=== PATIENT | female | born 1985 | race African-American/Black ===

== ENCOUNTER 2017-04-15 17:49 | Emergency (ER) | payer OTHER, MEDICAID ==
[~2017-04-15] VITALS: Ht 167.6 cm; Wt 99.8 kg
[~2017-04-15 17:49] MED LIST: AUGMENTIN 500-1 EACH PO; AZITHROMYCIN 2250 MG PO; BACTRIM DS TAB1 EACH PO; CLARITIN10 MG; CLEOCIN HCL300 MG PO; DICLEGIS DR 101 EACH PO; DOXYCYCLINE 10100 MG PO; FLAGYL500 MG PO; FLEXERIL PO; HTN MED; HYDROCODON-ACE1 EAC7 PO; HYDROCODONE-AP1 EAC6 PO; IBUPROFEN 600600 M1 PO; IBUPROFEN 800800 M1 PO; IRON325 PO; MACROBID 100 M100 M2 PO; MEDROLDOSEPACK PO; MUSCLE RELAXANT; NORCO 5-325 TA1 EACH; NORCO 5-325 TA1 EACH PO; ONDANSETRON HCL4 M2 PO; PERCOCET 5-3251 EACH PO; PERCOCET 7.5-31 EACH PO; PRENATAL ONE T1 EACH PO; PRENATAL PO; PROAIR HFA8.5 GM INH; PROVENTIL HFA6.7 G1 INH; ROBAXIN 750 MG750 M1 PO; TRAMADOL 50 MG50 MG PO; TRINATE TABLET1 TAB PO; ULTRAM 50MG TAB50 MG PO; ZOFRAN ODT4 MG PO; ZOFRAN4 MG PO; ZPAK PO
[2017-04-15 17:54] VITALS: BP 183/110
[2017-04-15] MEDS ORDERED: AMLODIPINE BESY10 MG PO (18:02)
[2017-04-15] MEDS ORDERED: CORICIDIN COLD1 EACH PO (18:12)
[2017-04-15] MEDS ORDERED: OSELB75 PO (18:12)
[2017-04-15] MEDS ORDERED: TESSALON PERLE100 MG PO (18:12)
[2017-04-15] MEDS ORDERED: IBUPROFEN 800800 M1 PO (18:13)
== END 2017-04-15 18:20 | disposition home or self-care (01) ==
LOC: M.ERS 17:49
DX: J11.1 Influenza due to unidentified influenza virus with other respiratory manifestations (principal); I10 Essential (primary) hypertension; Z88.5 Allergy status to narcotic agent

== ENCOUNTER 2017-07-31 21:38 | Emergency (ER) | payer OTHER, MEDICAID ==
[~2017-07-31] VITALS: Ht 167.6 cm; Wt 106.6 kg
[~2017-07-31 21:38] MED LIST changes: +AMLODIPINE BESY10 MG PO; +CORICIDIN COLD1 EACH PO; +OSELB75 PO; +TESSALON PERLE100 MG PO
[2017-07-31 21:42] VITALS: BP 150/83
[2017-07-31] MEDS ORDERED: TRAZODONE HCL50 MG PO (21:49)
[2017-07-31] MEDS ORDERED: HYDROXYZINE PAM50 MG PO (21:49)
[2017-07-31] MEDS ORDERED: FLEXERIL PO (22:01)
[2017-07-31] MEDS ORDERED: IBUPROFEN 800800 MG PO (22:01)
[2017-07-31] MEDS ORDERED: LIORESAL 10 MG10 MG PO (22:01)
--- NOTE | 2017-08-02 15:49 | EKG ---
[place] [address] ELECTROCARDIOGRAM REPORT Name: SHAMA HILLS [facility] [id number] Admission: 07/31/17 Attend Phys: Discharge: 07/31/17 Date of : 87 Report #: [id number] THIS REPORT FOR: //name// [facility] ED Test Date: 2017-07-31 Test Time: 21:43:35 Pat Name: SHAMA HILLS Department: Room: Gender: F [employer]: ELSIE : 1985 Requested By: Krystal Davila Order Number: [id number] Reading MD: Brice Mendoza Measurements Intervals [place] Rate: 83 P: 39 UT: 164 QRS: 7 QRSD: 107 T: 27 QT: 371 QTc: 436 Interpretive Statements Sinus rhythm Compared to ECG 01/30/2016 20:56:04 No significant changes Electronically Signed On 08-02-2017 15:49:46 CDT by Brice Mendoza [email or web address] <ELECTRONICALLY SIGNED> By: Brice Mendoza MD, [facility] 08/02/17 [id number] [id number] Brice Mendoza MD, FACC /EPI
== END 2017-07-31 22:13 | disposition home or self-care (01) ==
LOC: M.ERS 21:38
DX: M43.6 Torticollis (principal); I10 Essential (primary) hypertension; F41.9 Anxiety disorder, unspecified; F32.9 Major depressive disorder, single episode, unspecified; Z88.5 Allergy status to narcotic agent

== ENCOUNTER 2017-12-29 22:50 | Emergency (ER) | payer MEDICAID ==
[~2017-12-29] VITALS: Ht 167.6 cm; Wt 104.3 kg
[~2017-12-29 22:50] MED LIST changes: +HYDROXYZINE PAM50 MG PO; +IBUPROFEN 800800 MG PO; +LIORESAL 10 MG10 MG PO; +TRAZODONE HCL50 MG PO
[2017-12-29 23:05] VITALS: BP 149/74
[2017-12-29] MEDS ORDERED: SSD CREAM 1% 5050 GM TOP (23:32)
== END 2017-12-29 23:52 | disposition home or self-care (01) ==
LOC: M.ERS 22:50
DX: T24.112A Burn of first degree of left thigh, initial encounter (principal); T31.0 Burns involving less than 10% of body surface; I10 Essential (primary) hypertension; F32.9 Major depressive disorder, single episode, unspecified; F41.9 Anxiety disorder, unspecified; Z88.5 Allergy status to narcotic agent; X08.8XXA Exposure to other specified smoke, fire and flames, initial encounter; Y93.89 Activity, other specified; Y92.89 Other specified places as the place of occurrence of the external cause; Y99.8 Other external cause status

== ENCOUNTER 2018-02-22 12:48 | Emergency (ER) | payer MEDICAID ==
[~2018-02-22] VITALS: Ht 167.6 cm; Wt 99.8 kg
[~2018-02-22 12:48] MED LIST changes: +SSD CREAM 1% 5050 GM TOP
[2018-02-22] MEDS ORDERED: BENADRYL25 MG PO (13:06)
[2018-02-22] MEDS ORDERED: AMOXICILLIN 50500 MG PO (14:27)
[2018-02-22] MEDS ORDERED: OFLOXACIN5 M1 OTIC (14:27)
[2018-02-22 14:41] VITALS: BP 150/92
== END 2018-02-22 14:42 | disposition home or self-care (01) ==
LOC: M.ERS 12:48
DX: H66.012 Acute suppurative otitis media with spontaneous rupture of ear drum, left ear (principal); H57.12 Ocular pain, left eye; I10 Essential (primary) hypertension; F32.9 Major depressive disorder, single episode, unspecified; F41.9 Anxiety disorder, unspecified; Z88.8 Allergy status to other drugs, medicaments and biological substances

== ENCOUNTER 2019-05-08 10:55 | Emergency (ER) | payer MEDICAID ==
[~2019-05-08] VITALS: Ht 167.6 cm; Wt 97.5 kg
[~2019-05-08 10:55] MED LIST changes: +AMOXICILLIN 50500 MG PO; +BENADRYL25 MG PO; +OFLOXACIN5 M1 OTIC
[2019-05-08 11:48] LABS: ABSOLUTE EOSINOPHILS 0.3 thou/uL (0.0-0.7); ABSOLUTE LYMPHOCYTES 1.8 thou/uL (0.8-5.3); ABSOLUTE MONOCYTES 0.5 thou/uL (0.0-1.2); ABSOLUTE NEUTROPHILS 3.4 thou/uL (1.6-8.1); BASOPHILS 0.3 %; HEMATOCRIT 33.5 % (37.0-47.0); HEMOGLOBIN 11.5 gm/dL (12.0-15.0); LYMPHOCYTES 30.8 %; MCH 31.9 pg (26.0-34.0); MCHC 34.3 g/dL (28.0-37.0); MONOCYTES 7.6 %; MPV 7.8 fl. (7.2-11.1); NUCLEATED RBCS 0 /100WBC; PLATELET COUNT* 330 thou/uL (150-400); POLYS 56.3 %; RDW-CV 14.3 % (10.5-14.5)
[2019-05-08 11:54] LABS: URINE BILIRUBIN NEGATIVE (Negative); URINE BLOOD TRACE (Negative); URINE CLARITY CLEAR; URINE COLOR YELLOW; URINE GLUCOSE-RANDOM NEGATIVE (Negative); URINE KETONES NEGATIVE (Negative); URINE LEUKOCYTES NEGATIVE (Negative); URINE NITRITE NEGATIVE (Negative); URINE PROTEIN NEGATIVE (Negative); URINE SPECIFIC GRAVITY >= 1.030 (1.005-1.030)
[2019-05-08 12:01] LABS: CALCIUM 8.8 mg/dL (8.5-10.1); CREATININE 0.8 mg/dL (0.6-1.3); POTASSIUM 3.5 mmol/L (3.5-5.1)
[2019-05-08 12:02] LABS: APTT 26.9 Seconds (25.0-31.3); PROTIME 10.7 Seconds (9.20-11.50)
[2019-05-08 12:06] LABS: ALBUMIN 3.7 g/dL (3.4-5.0); TOTAL BILIRUBIN 0.3 mg/dL (<0.1-1.0); TOTAL PROTEIN 7.8 g/dL (6.4-8.2)
[2019-05-08] MEDS ORDERED: ANUCORT-HC25 MG RECTAL (12:25)
[2019-05-08] MEDS ORDERED: PROCTOFOAM-HC 110 GM TOP (12:25)
[2019-05-08 12:38] VITALS: BP 129/82
== END 2019-05-08 12:38 | disposition home or self-care (01) ==
LOC: M.ERS 10:55
PROVIDERS: Physician Assistant
DX: K64.4 Residual hemorrhoidal skin tags (principal); D64.9 Anemia, unspecified; Z33.1 Pregnant state, incidental; I10 Essential (primary) hypertension; Z88.5 Allergy status to narcotic agent